=== PATIENT | male | born 1955 | race Caucasian/White ===

== ENCOUNTER 2017-12-11 08:55 | Day surgery (SDC) | payer OTHER ==
[2017-12-11] MEDS ORDERED: SODIUM CHLORID 0.9% 500 ML INJ 500 ML IV (08:56)
[2017-12-11] MEDS ORDERED: LIDOCAINE HCL 1% PF 5 ML SYRINGE OTHER (08:56)
[2017-12-11] MEDS ORDERED: LACTATED RINGER'S 1000 ML INJ 1,000 ML IV (08:56)
[2017-12-11] MEDS ORDERED: DEXAMETHASONE SOD PHOS 4 MG/ML VIAL IV (08:56)
[2017-12-11] MEDS ORDERED: ePHEDrine/NS 25 MG/5 ML SYRINGE IV (08:56)
[2017-12-11] MEDS ORDERED: ONDANSETRON HCL 4 MG/2 ML VIAL IV (08:56)
[2017-12-11] MEDS ORDERED: PROPOFOL 200 MG/20 ML AMP IV (08:56)
[2017-12-11] MEDS: CHLORHEXIDINE GLUCONATE 2 % 1 PACK (2 CLOTHS) TOPICAL (09:00)
[2017-12-11] MEDS: POVIDONE IODINE 5% (ANTISEPSIS KIT) 4 APPLICATIONS EACH NARE ×2 (10:00→12:10)
[2017-12-11] MEDS: LACTATED RINGER'S 1000 ML IV (10:00)
[2017-12-11] MEDS: METOPROLOL TARTRATE 25 MG TAB PO ×2 (10:22→22:05)
[2017-12-11 10:46] LABS: AUTOMATED NEUTROPHIL # 3.6 TH/MM3 (1.8-7.7); BASOPHIL % 0.7 % (0.0-2.0); EOSINOPHIL # 0.2 TH/MM3 (0-0.4); HEMATOCRIT 36.2 % (39.0-51.0); HEMO FLAGS DIFF FINAL; HEMOGLOBIN 12.3 GM/DL (13.0-17.0); LYMPHOCYTE # 1.4 TH/MM3 (1.0-4.8); MEAN CELL VOLUME 90.8 FL (80.0-100.0); MEAN CORPUSCULAR HEMOGLOBIN 30.9 PG (27.0-34.0); MEAN PLATELET VOLUME 7.3 FL (7.0-11.0); MONO % 12.3 % (0.0-8.0); MONOCYTE # 0.7 TH/MM3 (0-0.9); PLATELET COUNT 278 TH/MM3 (150-450); RED BLOOD COUNT 3.98 MIL/MM3 (4.50-5.90); RED CELL DISTRIBUTION WIDTH 15.1 % (11.6-17.2)
[2017-12-11 10:53] LABS: PROTHROMBIN TIME - PATIENT 10.3 SEC (9.8-11.6)
[2017-12-11 11:02] LABS: ANION GAP 7 MEQ/L (5-15); BICARBONATE 27.5 MEQ/L (21.0-32.0); BLOOD UREA NITROGEN 6 MG/DL (7-18); CALCIUM 9.1 MG/DL (8.5-10.1); CHLORIDE 105 MEQ/L (98-107); CREATININE 0.94 MG/DL (0.60-1.30); GLOMERULAR FILTRATION RATE 82 ML/MIN (>89); GLUCOSE,RANDOM 103 MG/DL (74-106); POTASSIUM 4.4 MEQ/L (3.5-5.1); SODIUM (NA) 139 MEQ/L (136-145)
[2017-12-11] MEDS ORDERED: PROTAMINE SULFATE 50 MG/5 ML VIAL (11:30)
[2017-12-11] MEDS ORDERED: HEPARIN SODIUM - SQ 10,000 UNITS/ML VIAL (11:30)
[2017-12-11] MEDS ORDERED: PROPOFOL 200 MG/20 ML AMP ×2 (11:50→11:51)
[2017-12-11] MEDS: ceFAZolin 1,000 MG/NS 100 ML IV ×2 (11:57)
[2017-12-11] MEDS: HEPARIN SODIUM - IV 10,000 UNITS/10 ML VIAL (12:20)
[2017-12-11] MEDS: SODIUM CHLORID 0.9% 500 ML IV (12:20)
[2017-12-11] MEDS ORDERED: NITROGLYCERIN INJ 5 ML (13:37)
[2017-12-11] MEDS: BUPIVACAINE/EPINEPHRINE 0.5% PF 30 ML VIAL (14:30)
[2017-12-11] MEDS ORDERED: DO NOT ADM ANY ANTICOAGULANT DRUGS (15:06)
[2017-12-11] MEDS ORDERED: MIDAZOLAM HCL 2 MG/2 ML VIAL ×2 (15:21)
[2017-12-11] MEDS: IOHEXOL 350 MG/ML 50 ML BTL (for RAD DIAG) IVCONTRAST (15:24)
[2017-12-11] MEDS: LACTATED RINGER'S 1000 ML INJ 1,000 ML IV (16:00)
[2017-12-11] MEDS: *LABETALOL HCL 100 MG/20 ML VIAL PERIprocedural Use ONLY (16:03)
[2017-12-11] MEDS: *morphine SULFATE 8 MG/ML PERIprocedure ONLY (16:05)
[2017-12-11] MEDS ORDERED: ONDANSETRON HCL 4 MG/2 ML VIAL IV PUSH (16:30)
[2017-12-11] MEDS ORDERED: SODIUM CHLORIDE 0.9% FLUSH 10 ML FLUSH IV FLUSH (16:30)
[2017-12-11] MEDS ORDERED: METOPROLOL TARTRATE 5 MG/5 ML VIAL IV PUSH (16:30)
[2017-12-11] MEDS: TICAGRELOR 90 MG TAB PO (22:05)
[2017-12-12] MEDS: LEVOTHYROXINE SODIUM 50 MCG TAB PO (06:28)
[2017-12-12] MEDS: PANTOPRAZOLE SOD 20 MG DELAYED RELEASE TAB PO (08:55)
[2017-12-12] MEDS: ASPIRIN EC 81 MG TABEC PO (08:55)
[2017-12-12] MEDS: TICAGRELOR 90 MG TAB PO (08:55)
[2017-12-12] MEDS: ATORVASTATIN 80 MG TAB PO (08:55)
[2017-12-12] MEDS: METOPROLOL TARTRATE 25 MG TAB PO (08:56)
[2017-12-12] MEDS: amLODIPine BESYLATE 5 MG TAB PO (08:56)
[2017-12-12] MEDS ORDERED: ASPIRIN 81 MG CHEW TAB PO (09:00)
== END 2017-12-12 14:20 | disposition home or self-care (01) ==
LOC: HSDC 08:55 → HCPC 18:07
DX: I70.201 Unspecified atherosclerosis of native arteries of extremities, right leg (principal); I25.10 Atherosclerotic heart disease of native coronary artery without angina pectoris; I10 Essential (primary) hypertension; R07.9 Chest pain, unspecified; Z95.1 Presence of aortocoronary bypass graft; Z01.818 Encounter for other preprocedural examination; Z01.810 Encounter for preprocedural cardiovascular examination
CPT/HCPCS: 37229; 76937; 80048; 85025; 85610; 85730; 86850; 86900; 86901; 93005